=== PATIENT | male | born 1930 | race Caucasian/White ===

== ENCOUNTER 2019-02-13 10:10 | Emergency (ER) | payer MEDICARE, OTHER ==
[2019-02-13] MEDS: LORazepam 0.5 MG Tab PO ONE (10:57)
--- NOTE | 2019-02-13 10:59 | EDM.PDOC ---
ED HPI GENERAL MEDICAL PROBLEM - General Chief Complaint: General Stated Complaint: POSSIBLE HYPOTHERMIA Time Seen by Provider: 02/13/19 10:40 Source of Information: Reports: Patient, RN History Limitations: Reports: Other (minimal records) - History of Present Illness INITIAL COMMENTS - FREE TEXT/NARRATIVE: 88 yo male with multiple concerns today, including hypothermia, insomnia and constipation. Recognizes that he has many anxieties and is not on anything for this. Is returning home to [facility] soon. Here with his . 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 (see below) (none) - Related Data Allergies Allergy/AdvReac Type Severity Reaction Status Date / Time No Known Allergies Allergy Verified 02/13/19 10:28 Home Meds: Home Meds Docusate Sodium [Colace] 50 mg PO ASDIRECTED PRN 02/13/19 [History] Eszopiclone [Lunesta] 2 mg PO BEDTIME PRN 02/13/19 [History] LORazepam [Ativan] 0.5 mg PO TID PRN #4 tablet 02/13/19 [Rx] Lisinopril 20 mg PO DAILY 02/13/19 [History] Simvastatin 20 mg PO DAILY 02/13/19 [History] Spironolactone [Aldactone] 25 mg PO DAILY 02/13/19 [History] Warfarin [Coumadin] 2 mg PO ASDIRECTED 02/13/19 [History] Past Medical History HEENT History: Reports: Hard of Hearing, Impaired Vision Cardiovascular History: Reports: Afib, High Cholesterol Gastrointestinal History: Reports: Chronic Constipation Genitourinary History: Reports: Prostate Disorder Musculoskeletal History: Reports: None Neurological History: Reports: Other (See Below) Other Neuro History: insomnia Psychiatric History: Reports: Anxiety Hematologic History: Reports: Anticoagulation Therapy - Past Surgical History Head Surgeries/Procedures: Reports: None HEENT Surgical History: Reports: Adenoidectomy, Cataract Surgery, Tonsillectomy Cardiovascular Surgical History: Reports: None GI Surgical History: Reports: Cholecystectomy Musculoskeletal Surgical History: Reports: Shoulder Surgery Dermatological Surgical History: Reports: None Social & Family History - Tobacco Use Smoking Status *Q: Never Smoker Second Hand Smoke Exposure: No - Caffeine Use Caffeine Use: Reports: Coffee - Recreational Drug Use Recreational Drug Use: No ED ROS GENERAL - Review of Systems Review Of Systems: See Below Constitutional: Reports: No Symptoms HEENT: Reports: No Symptoms Respiratory: Reports: No Symptoms Cardiovascular: Reports: No Symptoms GI/Abdominal: Reports: Constipation : Reports: No Symptoms Musculoskeletal: Reports: No Symptoms Skin: Reports: No Symptoms Neurological: Reports: No Symptoms Psychiatric: Reports: Anxiety ED EXAM, GENERAL - Physical Exam Exam: See Below Exam Limited By: No Limitations General Appearance: Alert, WD/WN, No Apparent Distress Eye Exam: Bilateral Eye: Normal Inspection Ears: Normal External Exam, Normal Canal, Hearing Grossly Normal Ear Exam: Bilateral Ear: Auricle Normal, Canal Normal Nose: Normal Inspection, No Blood Throat/Mouth: Normal Inspection, Normal Lips, Normal Oropharynx, Normal Voice, No Airway Compromise Head: Atraumatic, Normocephalic Neck: Normal Inspection Respiratory/Chest: No Respiratory Distress, Lungs Clear, Normal Breath Sounds, No Accessory Muscle Use Cardiovascular: Regular Rate, Rhythm, No Edema GI/Abdominal: Normal Bowel Sounds, Soft, Non-Tender, No Distention Back Exam: Normal Inspection Extremities: Normal Inspection, Normal Range of Motion, Non-Tender, No Pedal Edema Neurological: Alert, Oriented, CN II-XII Intact, Normal Cognition, No Motor/ Sensory Deficits Psychiatric: Anxious Skin Exam: Warm, Dry, Intact, Normal Color, No Rash Course - Vital Signs Last Recorded V/S: Last Vital Signs Temp 34.7 C L 02/13/19 10:42 Pulse 68 02/13/19 10:42 Resp 19 02/13/19 10:42 BP 132/88 02/13/19 10:42 Pulse Ox 97 02/13/19 10:42 - Orders/Labs/Meds Meds: Medications Discontinued Medications Generic Name Dose Route Start Last Admin Trade Name Freq PRN Reason Stop Dose Admin Lorazepam 0.5 mg 02/13/19 10:53 Ativan PO 02/13/19 10:54 ONETIME ONE Departure - Departure Time of Disposition: 10:59 Disposition: Home, Self-Care 01 Condition: Good Clinical Impression: Anxiety - Discharge Information *PRESCRIPTION DRUG MONITORING PROGRAM REVIEWED*: No *COPY OF PRESCRIPTION DRUG MONITORING REPORT IN PATIENT JUSTIN: No Prescriptions: LORazepam [Ativan] 0.5 mg PO TID PRN #4 tablet PRN Reason: Anxiety Instructions: Living With Anxiety Referrals: PCP,None [Primary Care Provider] - Additional Instructions: Take lorazepam as needed for anxiety. Follow up with your provider regarding this upon return home to [place].
== END 2019-02-13 11:10 | disposition home or self-care (01) ==
LOC: JP.ED 10:10
DX: F41.9 Anxiety disorder, unspecified (principal); K59.00 Constipation, unspecified; I48.91 Unspecified atrial fibrillation; E78.00 Pure hypercholesterolemia, unspecified; Z79.01 Long term (current) use of anticoagulants; Z79.899 Other long term (current) drug therapy
CPT/HCPCS: 99283; A9270